=== PATIENT | female | born 1980 | race Caucasian/White ===

== ENCOUNTER → 2021-04-10 | Outpatient (CLI) | payer OTHER ==
[~2021-04-10] MED LIST: ABILIFY2 MG PO; ABILIFY5 MG PO; AMBIEN 5MG TABLE5 MG PO; ELAVIL10 MG PO; LAMICTAL150 MG PO; LUNESTA3 MG PO; MELATONIN20 MG PO; MULTIPLE VITAMI1 CAP PO; NORCO 325 MG-51 TAB PO
== END ==
LOC: MHCPAIN 09:01
DX: M79.18 Myalgia, other site (principal); M79.2 Neuralgia and neuritis, unspecified; M54.5 Low back pain
CPT/HCPCS: G0463

== ENCOUNTER → 2023-11-11 | Outpatient (CLI) | payer OTHER | LOC: MC.RAD 14:39 | DX: Z12.31 Encounter for screening mammogram for malignant neoplasm of breast (principal) ==